=== PATIENT | male | born 1950 | race Caucasian/White ===

== ENCOUNTER → 2020-11-28 02:26 | Outpatient (CLI) | payer MEDICARE, SELFPAY ==
[2020-11-28 18:14] LABS: SARS-CoV-2 RNA PCR Negative
== END ==
PROVIDERS: PCP Internal Medicine; Visit Provider Internal Medicine Gastroenterology
DX: Z01.812 Encounter for preprocedural laboratory examination (principal); Z20.822 Contact with and (suspected) exposure to COVID-19
CPT/HCPCS: C9803; U0003; U0005

== ENCOUNTER 2020-12-01 00:29 | Day surgery (SDC) | payer MEDICARE, SELFPAY ==
[2020-11-21 09:58] VITALS: BMI 34.9
[2020-12-01 08:04] VITALS: BP 143/71; PULSE 74; RESP 20; TEMP 36.3; O2SAT 100; BMI 33.1
[2020-12-01] MEDS: LACTATED RINGERS 1,000 ML 150 ML IV CONT (08:20)
[2020-12-01 08:25] LABS: Glucose Point of Care 134 mg/dl (65-105)
--- NOTE | 2020-12-01 08:34 | WPDANESEPPF ---
Anes - Initial Pre Proc Eval Procedure: Operation Date: 12/01/20 09:30 Proposed Procedures p Screening Colonoscopy - Shailesh Domingo MD Date/Time: 12/01/20 08:34 Surgeon: Shailesh Domingo MD Pre Op Diagnosis: hx of colon polyps Patient Data Age: 70 Gender: M Height: 5 ft 11 in Weight: 107.8 kg Last Vital Signs Temp 97.4 F L 12/01/20 08:04 Pulse 74 12/01/20 08:04 Resp 20 12/01/20 08:04 BP 143/71 H 12/01/20 08:04 Pulse Ox 100 12/01/20 08:04 Allergies Allergy/AdvReac Type Severity Reaction Status Date / Time bee venom protein (honey bee) Allergy Severe Anaphylaxis Verified 12/01/20 08:03 Home Medications Medication Instructions Recorded Confirmed Type albuterol sulfate 90 mcg/actuation 1 puff INHALATION Q4H PRN 04/29/19 11/21/20 History aerosol inhaler aspirin 325 mg tablet 325 mg PO DAILY 04/29/19 11/21/20 History dorzolamide 22.3 mg-timolol 6.8 1 drop EACH EYE BID 04/29/19 11/21/20 History mg/mL eye drops epinephrine 0.3 mg/0.3 mL 0.3 mg IM ONCE 04/29/19 11/21/20 History injection, auto-injector multivitamin 1 tablet PO DAILY 04/29/19 11/21/20 History blood sugar diagnostic #50 each 11/15/19 10/11/20 Rx amlodipine 5 mg tablet 5 mg PO DAILY #90 tablet 09/11/20 11/21/20 Rx atorvastatin 40 mg tablet See Rx Instructions .ROUTE 09/11/20 11/21/20 Rx .COMPLEX #90 tablet glipizide 5 mg tablet 5 mg PO QAM #90 tablet 09/11/20 11/21/20 Rx hydrochlorothiazide 25 mg tablet 25 mg PO DAILY #90 tablet 09/11/20 11/21/20 Rx lisinopril 20 mg tablet 20 mg PO DAILY #90 tablet 09/11/20 11/21/20 Rx brimonidine 0.1 % eye drops 1 drp EACH EYE BID 10/11/20 11/21/20 History calcium carbonate 168 mg calcium 168 mg PO DAILY tablet 10/11/20 11/21/20 History (420 mg) chewable tablet fluticasone fur. 100 mcg-umeclid 1 inh INHALATION DAILY #180 each 10/11/20 11/21/20 Rx 62.5 mcg-vilant 25 mcg inhalat.powder folic acid 0.8 mg PO DAILY 11/21/20 11/21/20 History metformin 1,000 mg PO BID 11/21/20 11/21/20 History Laboratory Tests 12/01/20 08:22 POC Capillary Glucose 134 mg/dl H mg/dl (65-105) Patient hx anesthesia problems: none Family hx anesthesia problems: none [facility] Past Medical History Medical History (Updated 12/01/20 @ 08:32 by Ralph Sanchez MD) Asthma Essential (primary) hypertension Mixed hyperlipidemia Pulmonary emphysema Family History Family History (Updated 11/12/18 @ 13:41 by DOCTOR UNKNOWN) Father Diabetes mellitus Family history of diabetes mellitus in first degree relative Mother Diabetes mellitus Family history of malignant neoplasm of breast in first degree relative Family history of diabetes mellitus in first degree relative Other Family history of glaucoma Family history of malignant neoplasm Hypertension Social History Social History Smoking packs per day: 1 Smoking cigarettes per day: 20.0 Years smoked: 28 Smoking pack-years: 28.00 Smoking status: Former smoker Second hand tobacco smoke exposure: No Smoking end date: 06/30/91 Alcohol intake: current Drinks per week: 7 Alcohol use details: one glass of red wine every night Living arrangements: with family Spiritual care concerns: No Anes - Eval Final PreProcedure Day of Procedure 12/01/20 08:34 Patient weight: obese Heart: regular rate and rhythm Lungs: clear to auscultation Airway: Mallampati scale class III Neurological: alert and oriented Last oral intake: >/= 8 hours ASA classification: III Emergent: no Anesthetic plan: proceed Anesthesia type and monitoring: general GIVS and standard monitoring Informed Consent: The patient's anesthetic plan and its attendant risks and benefits were discussed with the patient/family/POA. Questions were solicited and answers provided to the satisfaction of the patient/family/POA.
--- NOTE | 2020-12-01 08:56 | PM.HPGS ---
History of Present Illness History of Present Illness Consent: Risks, benefits, and alternatives have been discussed and questions answered. Patient agrees to proceed with procedure. Chief complaint: hx of colon polyps Narrative: Servando Pérez is a 70 year old male referred for colon cancer screening. He has a history of having had multiple polyps removed 3 years ago Review of Systems Review of Systems: All systems reviewed & are unremarkable except as noted in HPI and below PMFSH Past Medical History Medical History Asthma Essential (primary) hypertension Mixed hyperlipidemia Pulmonary emphysema Family History Family History Father Diabetes mellitus Family history of diabetes mellitus in first degree relative Mother Diabetes mellitus Family history of malignant neoplasm of breast in first degree relative Family history of diabetes mellitus in first degree relative Other Family history of glaucoma Family history of malignant neoplasm Hypertension Social History Social History Smoking packs per day: 1 Smoking cigarettes per day: 20.0 Years smoked: 28 Smoking pack-years: 28.00 Smoking status: Former smoker Second hand tobacco smoke exposure: No Smoking end date: 06/30/91 Alcohol intake: current Drinks per week: 7 Alcohol use details: one glass of red wine every night Living arrangements: with family Spiritual care concerns: No Meds Home Medications and Allergies Home Medications Medication Instructions Recorded Confirmed Type albuterol sulfate 90 mcg/actuation 1 puff INHALATION Q4H PRN 04/29/19 11/21/20 History aerosol inhaler aspirin 325 mg tablet 325 mg PO DAILY 04/29/19 11/21/20 History dorzolamide 22.3 mg-timolol 6.8 1 drop EACH EYE BID 04/29/19 11/21/20 History mg/mL eye drops epinephrine 0.3 mg/0.3 mL 0.3 mg IM ONCE 04/29/19 11/21/20 History injection, auto-injector multivitamin 1 tablet PO DAILY 04/29/19 11/21/20 History blood sugar diagnostic #50 each 11/15/19 10/11/20 Rx amlodipine 5 mg tablet 5 mg PO DAILY #90 tablet 09/11/20 11/21/20 Rx atorvastatin 40 mg tablet See Rx Instructions .ROUTE 09/11/20 11/21/20 Rx .COMPLEX #90 tablet glipizide 5 mg tablet 5 mg PO QAM #90 tablet 09/11/20 11/21/20 Rx hydrochlorothiazide 25 mg tablet 25 mg PO DAILY #90 tablet 09/11/20 11/21/20 Rx lisinopril 20 mg tablet 20 mg PO DAILY #90 tablet 09/11/20 11/21/20 Rx brimonidine 0.1 % eye drops 1 drp EACH EYE BID 10/11/20 11/21/20 History calcium carbonate 168 mg calcium 168 mg PO DAILY tablet 10/11/20 11/21/20 History (420 mg) chewable tablet fluticasone fur. 100 mcg-umeclid 1 inh INHALATION DAILY #180 each 10/11/20 11/21/20 Rx 62.5 mcg-vilant 25 mcg inhalat.powder folic acid 0.8 mg PO DAILY 11/21/20 11/21/20 History metformin 1,000 mg PO BID 11/21/20 11/21/20 History Allergies Allergy/AdvReac Type Severity Reaction Status Date / Time bee venom protein (honey bee) Allergy Severe Anaphylaxis Verified 12/01/20 08:03 Vital Signs Vital Signs - 24 hr 12/01/20 08:04 Temperature 36.3 C L Pulse Rate 74 Respiratory Rate 20 Blood Pressure 143/71 H Pulse Oximetry 100 Exam Const: General: alert Orientation/consciousness: patient oriented x3 Resp: Auscultation: clear to auscultation bilaterally Cardio: Rhythm: regular rhythm GI: GI Palp: Yes Soft to palpation and No Tenderness to palpation present (GI) Neuro: General: patient oriented x3 Assessment and Plan Assessment and plan (1) Colon cancer screening: Code(s): Z12.11 - Encounter for screening for malignant neoplasm of colon Status: Acute Assessment and Plan: Colonoscopy with possible biopsy or polypectomy or cautery or injection of substances.
[2020-12-01 09:16] VITALS: BP 107/65; PULSE 65; RESP 23; O2SAT 99
[2020-12-01 09:26] VITALS: BP 112/68; PULSE 60; RESP 20; O2SAT 99
[2020-12-01 09:36] VITALS: BP 114/65; PULSE 63; RESP 21; O2SAT 100
== END 2020-12-01 09:55 | disposition home or self-care (01) ==
PROVIDERS: PCP Internal Medicine; Visit Provider Internal Medicine Gastroenterology
PROC: 0DJD8ZZ Inspection of Lower Intestinal Tract, Via Natural or Artificial Opening Endoscopic (ICD-10-PCS; CPT 45378; principal; 2020-12-01 09:30)
DX: Z12.11 Encounter for screening for malignant neoplasm of colon (principal); D12.0 Benign neoplasm of cecum; K62.1 Rectal polyp; J45.909 Unspecified asthma, uncomplicated; I10 Essential (primary) hypertension; E78.2 Mixed hyperlipidemia; J43.9 Emphysema, unspecified; Z87.891 Personal history of nicotine dependence; E66.9 Obesity, unspecified; Z68.33 Body mass index [BMI] 33.0-33.9, adult; Z79.51 Long term (current) use of inhaled steroids; Z79.82 Long term (current) use of aspirin; Z79.84 Long term (current) use of oral hypoglycemic drugs
CPT/HCPCS: 45380; 45385; 45381; 82948; 88305; C9803; J7120; U0003; U0005

== ENCOUNTER → 2020-12-08 10:21 | Outpatient (CLI) | payer MEDICARE, SELFPAY ==
--- NOTE | ~2020-12-08 | XR_ITS ---
XR chest 2V 12/08/2020 10:38 Indication: Shortness of breath Procedure: 2 view chest Comparison: No prior studies for comparison. Findings: Heart size normal. No focal air space disease, pulmonary edema, pleural effusion or suspect ed pneumothorax. No acute osseous abnormality. Impression: 1: No acute cardiopulmonary disease. Reviewed, dictated and finalized at location B. Impression: 1: No acute cardiopulmonary disease.
== END ==
PROVIDERS: Visit Provider Nurse Practitioner
DX: R06.02 Shortness of breath (principal)
CPT/HCPCS: 71046

== ENCOUNTER 2020-12-09 16:42 | Inpatient (IN) | payer MEDICARE, SELFPAY ==
--- NOTE | ~2020-12-09 | CT_ITS ---
EXAMINATION: CT chest abdomen pelvis wo con DATE: 12/09/2020 19:55 INDICATION: Nausea, vomiting and acute renal insufficiency TECHNIQUE: Computed tomography (CT) of the chest, abdomen, and pelvis was performed without intraveno us contrast. Automated exposure control and iterative reconstruction technique were employed. The dos e-length product was 1441.37 mGy-cm. COMPARISON: Chest CT dated 05/18/2018 FINDINGS: CHEST CT: A few small calcified nodules in the right and left lower lobes consistent with old granulomatous dis ease. There are also a few calcified and noncalcified bilateral pleural plaques suggesting prior asbe stos exposure. No suspicious pulmonary nodules, pneumonia, pulmonary edema or pleural effusion. Heart size is normal. Atherosclerotic coronary artery calcifications. No pericardial effusion. Thoracic ao rta is normal in caliber. No pathologically enlarged thoracic lymphadenopathy. Mild to moderate thora cic spondylosis. ABDOMEN/PELVIS CT: Liver, gallbladder, spleen, pancreas and bilateral adrenal glands are normal. Symmetric mild to moder ate bilateral perinephric stranding. 9 mm exophytic cyst at the upper pole of the right kidney. Kidne ys are otherwise unremarkable with no urolithiasis or hydronephrosis. Bladder is normal. Small bowel and appendix are normal. There are few scattered colonic diverticula without adjacent inflammatory ch giancarlo to suggest diverticulitis. There is a small intraluminal metallic clip near the tip of the cecum which could be related to reported colonoscopy one week prior. Correlate with surgical history. No p neumatosis or free intraperitoneal gas or fluid. Moderate to severe lumbar spondylosis. IMPRESSION: 1. Small intraluminal metallic clip at the tip of the cecum which could be related to reported recent colonoscopy. Correlate with procedure note. No acute intra-abdominal/pelvic process. 2. A few bilateral calcified and noncalcified pleural plaques suggestive of prior asbestos exposure. No acute cardiopulmonary disease. Reviewed, dictated and finalized at location A. IMPRESSION: 1. Small intraluminal metallic clip at the tip of the cecum which could be rela nasir to reported recent colonoscopy. Correlate with procedure note. No acute int ra-abdominal/pelvic process. 2. A few bilateral calcified and noncalcified pleural plaques suggestive of vaibhav or asbestos exposure. No acute cardiopulmonary disease.
--- NOTE | ~2020-12-09 | US_ITS ---
EXAMINATION: US renal BI DATE: 12/10/2020 13:27 INDICATION: Elevated creatinine TECHNIQUE: Multiple ultrasound grayscale images of the kidneys were obtained. COMPARISON: None. FINDINGS: The right kidney measures 13.3 x 6.3 x 6.3 cm. The left kidney measures 14.0 x 6.5 x 5.8 cm. The kidn eys demonstrate normal echogenicity. There is no hydronephrosis in either kidney. No stones identifi ed. The bladder is normal. IMPRESSION: 1. Normal kidneys without hydronephrosis. Reviewed, dictated and finalized at location A.
[2020-12-09 16:44] VITALS: BP 192/70; PULSE 76; RESP 18; TEMP 36.2; O2SAT 100
--- NOTE | 2020-12-09 16:44 | ECG_ITS ---
Measurements Intervals Raymond Rate: 69 P: 49 ND: 164 QRS: -3 QRSD: 107 T: 84 QT: 388 QTc: 417 Interpretive Statements SINUS RHYTHM HIGH LATERAL INFARCT, AGE INDETERMINATE ABNORMAL ECG Electronically Signed On 12-09-2020 20:03:56 CDT by Kain Hudson D.O.
[2020-12-09 16:58] LABS: Basophils Absolute Auto 0.1 K/mm3 (0.0-0.1); Basophils Percent Auto 0.4 % (0.2-1.2); Eosinophils Absolute Auto 0.3 K/mm3 (0-0.3); Eosinophils Percent Auto 2.5 % (0-4.4); Hematocrit 33.6 % (42.0-52.0); Hemoglobin 11.2 g/dL (14.0-18.0); Immature Granulocyte Absolute 0.06 K/mm3 (0.00-0.031); Immature Granulocyte Percent A 0.5 % (0-0.5); Lymphocytes Absolute Auto 1.65 K/mm3 (0.9-3.2); Lymphocytes Percent Auto 14.4 % (18.3-44.2); Mean Corpuscular HGB Conc 33.3 g/dl (32-36); Mean Corpuscular Volume 99.1 fl (80-100); Mean Platelet Volume 9.3 fl (7.4-10.4); Monocytes Absolute Auto 1.7 K/mm3 (0.1-0.6); Monocytes Percent Auto 14.4 % (2.6-8.5); Neutrophils Absolute Auto 7.8 K/mm3 (1.3-6.7); Neutrophils Percent Auto 67.8 % (45.5-73.1); Platelet Count Result 393 k/mm3 (150-375); Red Blood Count 3.39 M/mm3 (4.6-6.20); Red Cell Distribution Width 11.7 % (11.5-14.5); White Blood Count 11.5 K/mm3 (4.5-10.0)
[2020-12-09 17:08] LABS: Anion Gap 17 mmol/L (8-16); Blood Urea Nitrogen 84 mg/dL (9-20); Calcium 8.8 mg/dL (8.4-10.2); Carbon Dioxide 18 mmol/L (22-30); Chloride 100 mmol/L (98-107); Estimated CRCL calculation 7 ml/min; Estimated Glomerular Filt Rate 4; Glucose 94 mg/dL (75-110); Potassium 5.2 mmol/L (3.4-5.0); Sodium 135 mmol/L (137-145)
--- NOTE | 2020-12-09 19:10 | ED.GENADULT ---
HPI - General Adult General Chief complaint: Recheck/Abnormal Lab/Rx Stated complaint: dehydrated Time Seen by Provider: 12/09/20 17:52 Source: patient Mode of arrival: ambulatory Limitations: no limitations History of Present Illness HPI narrative: Pt presents to ER for evaluation of abnormal labs. He indicates he was seen by Ender Arenas APN at his primary care physician's office yesterday. He had labs drawn at that time and indicates that Dr Garcia called him today and instructed him to come to the ER for a creatinine of above 11. It sounds like there was some type of confusion where lab personnel thought his PCP was Dr Garcia. He scheduled an appointment with his primary care provider for problems with an upset stomach , fatigue and erratic blood sugars following his recent colonoscopy. He is compliant with his metformin and glipizide but has not been taking these as scheduled the last few days due to episodes of hypoglycemia as low as 48 last Friday. He has experienced dry heaves and one episode of vomiting with decreased appetite. He denies abdominal pain per se but states that the muscles in his stomach are sore . He states that the posterior aspect of his calves were sore yesterday making it challenging for him to walk. Today, the pain is significantly improved. He denies any chest pain, fever and chills. He has experienced some shortness of breath but states that this was only slightly worse than his baseline. He has a hx of emphysema but no longer smokes. He had some leg swelling lately but his states this is significantly improved. No personal hx of VTE. He states that his mother may have had a DVT but he is not certain. He denies any recent strenuous activity. On my initial evaluation his creatinine is resulted at 11.7. He has some chronic urinary frequency and nocturia but states his current symptoms are not worse than baseline. He may have some pressure at the urethral orifice but denies any other new urinary symptoms. Related Data Home Medications Medication Instructions Recorded Confirmed albuterol sulfate 90 mcg/actuation 1 puff INHALATION Q4H PRN 04/29/19 12/08/20 aerosol inhaler aspirin 325 mg tablet 325 mg PO DAILY 04/29/19 12/08/20 dorzolamide 22.3 mg-timolol 6.8 1 drop EACH EYE BID 04/29/19 12/08/20 mg/mL eye drops epinephrine 0.3 mg/0.3 mL 0.3 mg IM ONCE 04/29/19 12/08/20 injection, auto-injector multivitamin 1 tablet PO DAILY 04/29/19 12/08/20 brimonidine 0.1 % eye drops 1 drp EACH EYE BID 10/11/20 12/08/20 calcium carbonate 168 mg calcium 168 mg PO DAILY tablet 10/11/20 12/08/20 (420 mg) chewable tablet folic acid 0.8 mg PO DAILY 11/21/20 12/08/20 Allergies Allergy/AdvReac Type Severity Reaction Status Date / Time bee venom protein (honey bee) Allergy Severe Anaphylaxis Verified 12/09/20 16:43 Review of Systems Review of Systems: Narrative: CONSTITUTIONAL: Reports fatigue. Denies fever, chills, or sweats. EYES: Denies visual changes, redness, or discharge. ENT: Denies rhinorrhea, congestion, sore throat, or otalgia. CARDIOVASCULAR: Denies chest pain, palpitations, or edema. RESPIRATORY: Reports chronic shortness of breath, unchanged. Denies cough GASTROINTESTINAL: Reports nausea. Denies abdominal pain, vomiting, or diarrhea. GENITOURINARY: Reports pressure in urethra. Denies other urinary symptoms. SKIN: Denies rash or itching. MUSCULOSKELETAL: Denies back pain, joint pain, or myalgia. NEUROLOGIC: Reports dizziness. Denies headache, numbness PSYCHIATRIC: Denies anxiety or depression. [facility] Past Medical History Medical History Asthma Diabetes Essential (primary) hypertension Mixed hyperlipidemia Pulmonary emphysema Family History Family History Father Diabetes mellitus Family history of diabetes mellitus in first degree relative Mother Diab
[2020-12-09 20:01] VITALS: BP 150/76; PULSE 73; RESP 18; O2SAT 100
[2020-12-09] MEDS: SODIUM BICARBONATE 8.4% 150 MEQ in DEXTROSE 5% 1,000 ML 950 ML 100 MEQ IV CONT (20:17)
[2020-12-09 20:43] LABS: Add Urine Microscopic? YES; Appearance Urine Clear (Clear); Bilirubin Urine Negative (Negative); Blood Urine Negative (Negative); Color Urine Yellow (Yellow); Glucose Urine UA Negative (Negative); Ketones Urine Negative (Negative); Leukocyte Esterase Ur Negative LEU/UL (Negative); Nitrate Urine Negative (Negative); Protein Urine 1+ mg/dL (Negative); RBC Urine 0-2 /hpf (0-2); Specific Grav Ur 1.012 (1.001-1.035); Urobilinogen Urine Negative mg/dL (<2.0); WBC Urine 0-3 /hpf
[2020-12-09 20:44] LABS: Alanine Aminotransferase 22 U/L (4-50); Albumin Level 4.5 g/dL (3.5-5.1); Alkaline Phosphatase 58 U/L (38-126); Aspartate Amino Transferase 27 U/L (17-59); Bilirubin,Total 0.2 mg/dL (0.2-1.3); Creatine Kinase 63 U/L (55-170); Lipase 553 U/L (23-300); Phosphorus 8.4 mg/dL (2.5-4.5)
[2020-12-09 20:56] LABS: Lactic Acid Reflex < 0.5 mmol/L (0.7-2.1)
[2020-12-09 20:56] LABS: Troponin I < 0.012 ng/mL (0.000-0.034)
[2020-12-09 23:10] VITALS: BP 146/75; PULSE 82; RESP 18; O2SAT 99
[2020-12-09 23:40] VITALS: BP 134/70; PULSE 64; PULSE 72; RESP 16; TEMP 36.4; O2SAT 100
--- NOTE | 2020-12-09 23:44 | ADMGEN ---
This patient, Servando Pérez, was admitted to [facility] Surg Room 332-01. Patient/family oriented to hospital policies and general routines including ID bracelet, bed and alarms, visiting hours, pain management, procedures, bathroom and other care routines, personal items, smoking policy, room service/diet, and visiting hours. Information on how to activate the Rapid Response Team has been discussed. Patient/Family are encouraged to report perceived risks to care and to ask questions if they do not understand what they are told or what they should do.
[2020-12-10] VITALS (9 sets, daily range): BP systolic 112–125; BP diastolic 47–58; PULSE 56–70; RESP 16–20; TEMP 36.4–36.8; O2SAT 96–100; BMI 33.7
[2020-12-10 00:54] LABS: Troponin I < 0.012 ng/mL (0.000-0.034)
--- NOTE | 2020-12-10 02:03 | PM.IMHP ---
H&P: HPI History of Present Illness Date/Time: 12/10/20 02:03 Chief Complaint: ABNORMAL LAB Narrative: This is a 70-year-old male with past medical history significant for colon polyp, hypertension, type 2 diabetes mellitus, glaucoma. Patient presented to the emergency room after he was instructed to do so after some of his lab work turned up to be abnormal with an elevated creatinine. A repeat creatinine in the emergency room was 11. Patient states that he went to see his primary care physician after he has his colonoscopy has not been feeling well has had a stomach upset generalized body aches and pain yesterday he had bilateral calves pain. No fevers no rigors no chills no syncope or near syncope no chest pain no PND no orthopnea no fatigue has had cough with production of greenish phlegm which he states is his usual. He was also found to have elevated potassium and phosphorus patient states that he has been having some workup done in the outpatient setting as well. He denies any issues with voiding. States that his colonoscopy was routine follow-up status due to polyps found in the past his next 1 will be in 5 years. Review of Systems Review of Systems: Narrative: Abnormal lab Constitutional: Constitutional: Denies chills, Denies fatigue, Denies fever(s), Denies malaise and Denies weakness Eyes: Eyes: Denies change in vision ENT: Denies nasal congestion, Denies nasal discharge and Denies nasal obstruction Cardiovascular: Cardiovascular: Denies chest pain, Denies irregular heart rhythm, Denies claudication, Denies leg edema, Denies radiating jaw, neck or arm pain, Denies dyspnea and Denies dyspnea on exertion Respiratory: Respiratory: Denies change in phlegm color and Reports cough Comments: Greenish colored sputum Gastrointestinal: Gastrointestinal: Denies melena, Denies change in bowel habits, Denies heartburn, Reports nausea and Reports vomiting Genitourinary: Genitourinary: Denies hematuria, Denies oliguria, Denies dysuria, Denies flank pain and Denies urinary hesitancy Musculoskeletal: Musculoskeletal: Reports muscle cramps Comments: Bilateral calves Integumentary/Breasts: Skin/Breast: Denies rash Neurologic: Denies dizziness, Denies focal weakness and Denies Sensory deficit (Neuro) Psychiatric: Psychiatric: Reports no additional psychiatric complaints Endocrine: Endocrine: Reports no additional endocrine complaints Hematologic/Lymphatic: Hematologic/Lymphatic: Reports no additional hematologic/lymphatic complaints Allergic/Immunologic: Allergic/Immunologic: Reports no additional allergic/immunologic complaints [facility] Past Medical History Medical History Asthma Diabetes Essential (primary) hypertension Mixed hyperlipidemia Pulmonary emphysema Family History Family History Father Diabetes mellitus Family history of diabetes mellitus in first degree relative Mother Diabetes mellitus Family history of malignant neoplasm of breast in first degree relative Family history of diabetes mellitus in first degree relative Other Family history of glaucoma Family history of malignant neoplasm Hypertension Social History Social History Smoking packs per day: 1 Smoking cigarettes per day: 20.0 Years smoked: 28 Smoking pack-years: 28.00 Smoking status: Former smoker Second hand tobacco smoke exposure: No Smoking end date: 06/30/91 Alcohol intake: current Drinks per week: 7 Gender identity (if verbalized by the patient): Male Spiritual care concerns: No Meds Home Medications and Allergies Home Medications Medication Instructions Recorded Confirmed Type albuterol sulfate 90 mcg/actuation 1 puff INHALATION Q4H PRN 04/29/19 12/08/20 History aerosol inhaler aspirin 325 mg tablet 325 mg PO DAILY
[2020-12-10 02:12] LABS: Calcium 8.7 mg/dL (8.4-10.2)
[2020-12-10] MEDS: CALCIUM GLUC 1,000 MG/NS 50 ML 1,000 MG/50 ML BAG 100 MG IVPB (03:55)
[2020-12-10] MEDS: SODIUM POLYSTYRENE SULFONONATE 15 GM/60 ML BTL 30 GM PO (04:11)
[2020-12-10 06:58] LABS: Basophils Percent Auto 0.3 % (0.2-1.2); Eosinophils Absolute Auto 0.2 K/mm3 (0-0.3); Eosinophils Percent Auto 2.3 % (0-4.4); Hematocrit 31.6 % (42.0-52.0); Hemoglobin 10.7 g/dL (14.0-18.0); Immature Granulocyte Absolute 0.04 K/mm3 (0.00-0.031); Immature Granulocyte Percent A 0.4 % (0-0.5); Lymphocytes Absolute Auto 1.56 K/mm3 (0.9-3.2); Lymphocytes Percent Auto 17.4 % (18.3-44.2); Mean Corpuscular HGB Conc 33.9 g/dl (32-36); Mean Corpuscular Hemoglobin 33.5 pg (26-34); Mean Corpuscular Volume 99.1 fl (80-100); Mean Platelet Volume 9.2 fl (7.4-10.4); Monocytes Absolute Auto 1.6 K/mm3 (0.1-0.6); Neutrophils Absolute Auto 5.5 K/mm3 (1.3-6.7); Neutrophils Percent Auto 61.6 % (45.5-73.1); Platelet Count Result 359 k/mm3 (150-375); Red Blood Count 3.19 M/mm3 (4.6-6.20); Red Cell Distribution Width 11.4 % (11.5-14.5); White Blood Count 8.9 K/mm3 (4.5-10.0)
[2020-12-10] MEDS: SODIUM BICARBONATE 8.4% 150 MEQ in DEXTROSE 5% 1,000 ML 950 ML 100 MEQ IV CONT ×2 (07:04→17:00)
[2020-12-10 07:09] LABS: Anion Gap 16 mmol/L (8-16); Blood Urea Nitrogen 84 mg/dL (9-20); Calcium 8.5 mg/dL (8.4-10.2); Carbon Dioxide 20 mmol/L (22-30); Chloride 100 mmol/L (98-107); Estimated CRCL calculation 7 ml/min; Estimated Glomerular Filt Rate 5; Glucose 147 mg/dL (75-110); Potassium 4.5 mmol/L (3.4-5.0); Sodium 136 mmol/L (137-145)
[2020-12-10 08:31] LABS: Glucose Point of Care 154 mg/dl (65-105)
[2020-12-10] MEDS: ASPIRIN 325 MG TABLET PO (09:26)
[2020-12-10] MEDS: DORZOLAMIDE/TIMOLOL OPHTH SOL 10 ML BOTTLE 1 DROP EACH EYE ×2 (09:26→22:05)
[2020-12-10] MEDS: BRIMONIDINE TARTRATE 0.1% 5 ML OPHTH DROPS 1 DROP EACH EYE ×2 (09:26→17:02)
[2020-12-10] MEDS: amLODIPine BESYLATE 5 MG TABLET PO (09:27)
--- NOTE | 2020-12-10 12:00 | PM.CNNEP ---
Assessment and Plan Assessment and plan (1) VALENTIN (acute kidney injury): Code(s): N17.9 - Acute kidney failure, unspecified Status: Acute Assessment and Plan: the patient has acute kidney injury. In 2019 he had a normal creatinine. In October and November of this year the patient had a creatinine in the high 1s. It is not sure what evaluation he had for this but the creatinine was not high long enough to call this chronic kidney disease. Now with the patient's creatinine is very high. There are multiple issues that might be related to this. He was not eating or drinking and he was taking his diuretics so could be dehydrated. He also took some ibuprofen but it is unlikely that what he took did this much. Also most of renal issues were present by the time he took the ibuprofen. He did have a colonoscopy with a prep and might have gotten dehydration during the prep. Patient patient could have obstruction as well since he has a prostate. So will check on this. Rhabdomyolysis is always a possibility as well but his CK was normal. Other issues such as glomerulonephritis, interstitial nephritis are possible as well. His urine sediment is somewhat bland and so these last 2 issues are unlikely. Will check a renal ultrasound and get urine electrolytes and eosinophils. Will also check serology and immunofixation, especially since his calcium was high right before this. (2) Hyperkalemia: Code(s): E87.5 - Hyperkalemia Status: Acute Assessment and Plan: This is better now. (3) Diabetes: Code(s): E11.9 - Type 2 diabetes mellitus without complications Status: Acute Assessment and Plan: He is on Accu-Cheks and sliding-scale insulin. He was on metformin but stopped this a week ago thank Goodness and his lactate level is okay (4) Nausea & vomiting: Qualifiers: Vomiting type: unspecified Vomiting Intractability: non-intractable Qualified Code(s): R11.2 - Nausea with vomiting, unspecified Code(s): R11.2 - Nausea with vomiting, unspecified Status: Acute Assessment and Plan: the patient had belly comfort and issues after his colonoscopy. This seems to be better. History of Present Illness Reason for Consult Consult date: 12/10/20 Chief Complaint Chief complaint: VALENTIN History of Present Illness Narrative: Kalli is a very pleasant 70-year-old gentleman who has multiple medical problems including diabetes, hypertension, glaucoma, colon polyps Emphysema , asthma, and hyperlipidemia. the patient says he felt well until he had a colonoscopy about a week ago. He did the prep in that went fine. After the colonoscopy he did not feel very well and really did not get any better. He says that he did not eat very well. He had no belly pain and no bloody stools but had some nausea. He had some aches and pains and so took 2 ibuprofen yesterday but otherwise did not take any nonsteroidal anti-inflammatory agents. He says that his blood sugars were normal to low. He stopped his metformin a week ago and stopped his glipizide about 5 days ago. Since then his blood sugars have been better. Throughout this whole time he was making urine. He had no bloody urine, foamy urine, kidney stones, bladder infections, or painful urination. in the recent past the patient had an elevated creatinine such at his GFR was in the CKD 3B range. He also had high calcium for a couple of months this year. He was on hydrochlorothiazide at the time though. Has no chest pain or shortness of breath. No fevers or chills. He does not smoke. He drinks a glass of wine per day Review of Systems Constitutional: Constitutional: Reports no additional constitutional complaints Eyes: Eyes: Reports no additional eye complaints ENT: Reports system reviewed and no additional complaints, except as documented Cardiovascular: Cardiovascular: Reports no additional cardiovascular compl
--- NOTE | 2020-12-10 12:20 | PM.IMPN ---
Progress Note: A&P Assessment and Plan (1) VALENTIN (acute kidney injury): Code(s): N17.9 - Acute kidney failure, unspecified Status: Acute Assessment and Plan: Unclear etiology at this time -patient was on hydrochlorothiazide, ibuprofen and metformin prior to admission and these have been held -he had a colonoscopy prep last week which could have contributed to dehydration -his creatinine last month was 1.8, today it is 10.8 -electrolytes seems stable, continue telemetry -he has not been on any antibiotics or any new medications. UA negative for infection -differential wide, nephrology has ordered urine electrolytes and eosinophiles as well as serology and additional imaging -PhosLo added, patient on a bicarb drip with CO2 of 20 (2) Hyperkalemia: Code(s): E87.5 - Hyperkalemia Status: Acute Assessment and Plan: Resolved, now 4.5 -monitor daily labs (3) Nausea & vomiting: Qualifiers: Vomiting type: unspecified Vomiting Intractability: non-intractable Qualified Code(s): R11.2 - Nausea with vomiting, unspecified Code(s): R11.2 - Nausea with vomiting, unspecified Status: Acute Assessment and Plan: Improving, will advance diet (4) Type 2 diabetes mellitus without complication, with no history of insulin use: Code(s): E11.9 - Type 2 diabetes mellitus without complications Status: Acute Assessment and Plan: Last glucose 154 -will continue sliding scale insulin -hold home oral medications (5) Colon cancer screening: Code(s): Z12.11 - Encounter for screening for malignant neoplasm of colon Status: Acute Assessment and Plan: status post recent colonoscopy -I spoke with Dr. Domingo about this patient and he states he placed a clip in the cecum but may have not been documented. (6) Anemia: Code(s): D64.9 - Anemia, unspecified Status: Acute Assessment and Plan: Hgb stable at 10.7 -monitor Time Spent With Patient Time with patient: 25 - 35 minutes Subjective Date/time seen: 12/10/20 12:20 Interval history: Pt is a 30-year-old male here for kidney failure. Patient seen today and has no complaints. He states he is urinating a lot and drinking a lot a water. Pt denies nausea, vomiting, dizziness, fevers, chills, constipation, diarrhea, chest pain, sob, back pain or abdominal pain. Patient states he was swollen earlier this week but it has improved. He was taking hydrochlorothiazide and ibuprofen prior to admission. Review of Systems Review of Systems: All systems reviewed & are unremarkable except as noted in HPI and below Exam Narrative: Exam Narrative: General: Well developed well nourished patient in NAD HEENT: normocephalic Neck: supple Neuro: Alert and oriented x4 CV:RRR. Telemetry showing normal sinus rhythm with a rate of 60 Resp:CTA Abd: Soft, non distended. No pain to palpation. Positive bowel sounds Extremities: No swelling, erythema, or pain to palpation. Objective Data Vital Signs Vital Signs: Vital Signs - 24 hr 12/09/20 16:44 12/09/20 20:01 12/09/20 23:10 Temperature 97.2 F L Pulse Rate 76 73 82 Respiratory Rate 18 18 18 Blood Pressure 192/70 H 150/76 H 146/75 H Pulse Oximetry 100 100 99 12/09/20 23:40 12/10/20 04:00 12/10/20 06:00 Temperature 97.6 F 97.6 F Pulse Rate 64 66 65 Respiratory Rate 16 20 Blood Pressure 134/70 125/57 L Pulse Oximetry 100 96 12/10/20 10:46 Temperature Pulse Rate Respiratory Rate Blood Pressure Pulse Oximetry 98 Intake/Output Intake/Output: Intake & Output 12/07/20 12/08/20 12/09/20 12/10/20 23:59 23:59 23:59 23:59 Intake Total 1550 Output Total 850 Balance 700 Meds/Results Medications: Active Medications Generic Name Dose Route Start Last Admin Trade Name Wichoq PRN Reason Stop Dose Admin Acetaminophen 650 mg 12/09/20 21:19 Acetaminophen 325 Mg Tablet P
[2020-12-10 12:26] LABS: Glucose Point of Care 208 mg/dl (65-105)
[2020-12-10] MEDS: INSULIN ASPART (*BKC) 100 UNITS/ML SUB-Q (12:31)
[2020-12-10] MEDS: CALCIUM ACETATE 667 MG TABLET PO ×2 (12:33→17:02)
[2020-12-10] MEDS: FLUTICASONE/UMECLIDIN/VILANTER 100-62.5-25 MCG ELLIPTA 1 PUFF INHALATION (12:34)
[2020-12-10 14:12] LABS: Complement C3 121 mg/dL (88-165)
[2020-12-10 14:16] LABS: Iron 46 ug/dL (49-181)
[2020-12-10 14:27] LABS: Erythrocyte Sedimentation Rate > 140 mm/hr (0-20)
[2020-12-10 14:28] LABS: Percent Iron Saturation 14 % (20-50)
[2020-12-10 15:56] LABS: Creatinine Urine 62.9 mg/dL; Total Protein Urine Random 27 mg/dL; Ur Ttl Prot Creatinine Ratio 0.43 mg/mg (0-0.20)
[2020-12-10 16:02] LABS: Sodium Urine Random 59 meq/L
[2020-12-10 17:27] LABS: Glucose Point of Care 113 mg/dl (65-105)
[2020-12-11] VITALS (8 sets, daily range): BP systolic 119–129; BP diastolic 60–78; PULSE 49–60; RESP 16–20; TEMP 36.4–36.7; O2SAT 99–100
[2020-12-11] MEDS: SODIUM BICARBONATE 8.4% 150 MEQ in DEXTROSE 5% 1,000 ML 950 ML 100 MEQ IV CONT ×2 (03:36→14:12)
[2020-12-11 06:32] LABS: Hematocrit 27.4 % (42.0-52.0); Hemoglobin 9.2 g/dL (14.0-18.0); Mean Corpuscular HGB Conc 33.6 g/dl (32-36); Mean Corpuscular Hemoglobin 33.3 pg (26-34); Mean Corpuscular Volume 99.3 fl (80-100); Mean Platelet Volume 9.5 fl (7.4-10.4); Platelet Count Result 328 k/mm3 (150-375); Red Blood Count 2.76 M/mm3 (4.6-6.20); Red Cell Distribution Width 11.4 % (11.5-14.5); White Blood Count 8.7 K/mm3 (4.5-10.0)
[2020-12-11 06:42] LABS: Albumin Level 3.7 g/dL (3.5-5.1); Anion Gap 12 mmol/L (8-16); Blood Urea Nitrogen 72 mg/dL (9-20); Calcium 7.7 mg/dL (8.4-10.2); Carbon Dioxide 28 mmol/L (22-30); Chloride 93 mmol/L (98-107); Estimated CRCL calculation 9 ml/min; Estimated Glomerular Filt Rate 6; Glucose 145 mg/dL (75-110); Phosphorus 6.7 mg/dL (2.5-4.5); Potassium 3.9 mmol/L (3.4-5.0); Sodium 133 mmol/L (137-145)
[2020-12-11 08:03] LABS: Glucose Point of Care 147 mg/dl (65-105)
[2020-12-11] MEDS: FLUTICASONE/UMECLIDIN/VILANTER 100-62.5-25 MCG ELLIPTA 1 PUFF INHALATION (08:26)
[2020-12-11] MEDS: amLODIPine BESYLATE 5 MG TABLET PO (08:27)
[2020-12-11] MEDS: CALCIUM ACETATE 667 MG TABLET PO ×3 (08:28→16:50)
[2020-12-11] MEDS: DORZOLAMIDE/TIMOLOL OPHTH SOL 10 ML BOTTLE 1 DROP EACH EYE ×2 (08:28→20:23)
[2020-12-11] MEDS: ASPIRIN 325 MG TABLET PO (08:28)
[2020-12-11] MEDS: BRIMONIDINE TARTRATE 0.1% 5 ML OPHTH DROPS 1 DROP EACH EYE ×2 (08:28→16:51)
[2020-12-11 11:39] LABS: Glucose Point of Care 206 mg/dl (65-105)
[2020-12-11] MEDS: INSULIN ASPART (*BKC) 100 UNITS/ML SUB-Q (11:41)
--- NOTE | 2020-12-11 14:19 | PM.PNNEP ---
Progress Note: A&P Assessment and Plan (1) VALENTIN (acute kidney injury): Code(s): N17.9 - Acute kidney failure, unspecified Status: Acute Assessment and Plan: the patient has acute kidney injury. In 2019 he had a normal creatinine. In October and November of this year the patient had a creatinine in the high 1s. It is not sure what evaluation he had for this but the creatinine was not high long enough to call this chronic kidney disease. On top of that his creatinine was very high this admission. This was in the setting of nausea vomiting and diarrhea. Renal ultrasound looks okay. Urinalysis is bland. He does have a little bit of protein. Urine electrolytes are non pre renal. Urine eosinophils are pending. Most likely this is acute kidney injury secondary to dehydration. He may have an element of ATN because it was going on for such a long time. Will continue IV fluids. He had metabolic acidosis. Bicarbonate level is okay now so we will stop the bicarbonate supplementation to his IV fluid. (2) Hyperkalemia: Code(s): E87.5 - Hyperkalemia Status: Acute Assessment and Plan: Resolved (3) Diabetes: Code(s): E11.9 - Type 2 diabetes mellitus without complications Status: Acute Assessment and Plan: He is on Accu-Cheks and sliding-scale insulin. He was on metformin but stopped this a week ago thank Goodness and his lactate level is okay (4) Nausea & vomiting: Qualifiers: Vomiting type: unspecified Vomiting Intractability: non-intractable Qualified Code(s): R11.2 - Nausea with vomiting, unspecified Code(s): R11.2 - Nausea with vomiting, unspecified Status: Acute Assessment and Plan: Improved Subjective Date/time seen: 12/11/20 14:19 Interval history: Patient feels better today. Food is not very good so he is not eating all that much. No chest pain or shortness of breath. No swelling. Review of Systems Cardiovascular: Cardiovascular: Reports no additional cardiovascular complaints Respiratory: Respiratory: Reports no additional respiratory complaints Gastrointestinal: Gastrointestinal: Reports no additional gastrointestinal complaints Genitourinary: Genitourinary: Reports no additional male genitourinary complaints Exam Narrative: Exam Narrative: WDWN in NAD skin no rash head ncat lungs clear cor reg no rub abd BS+ nontender and soft ext no edema. Objective Data Vital Signs Vital Signs: Vital Signs - 24 hr 12/10/20 16:00 12/10/20 20:00 12/10/20 22:00 Temperature 36.8 C Pulse Rate 59 L 60 60 Respiratory Rate 16 Blood Pressure 112/47 L Pulse Oximetry 100 12/11/20 00:00 12/11/20 04:00 12/11/20 06:00 Temperature 36.4 C Pulse Rate 53 L 60 57 L Respiratory Rate 16 Blood Pressure 119/63 Pulse Oximetry 100 12/11/20 08:00 12/11/20 12:00 Temperature Pulse Rate 59 L 49 L Respiratory Rate Blood Pressure Pulse Oximetry Intake/Output Intake/Output: Intake & Output 12/08/20 12/09/20 12/10/20 12/11/20 23:59 23:59 23:59 23:59 Intake Total 5450 2740 Output Total 2600 1100 Balance 2850 1640 Meds/Results Medications: Active Medications Generic Name Dose Route Start Last Admin Trade Name Freq PRN Reason Stop Dose Admin Acetaminophen 650 mg 12/09/20 21:19 Acetaminophen 325 Mg Tablet PO Q4H PRN Mild Pain (1-3) or Fever Albuterol 1 puff 12/10/20 02:22 Albuterol Sulfate (*Sp) Aerosol 1 Puff INHALATION Q4H PRN Shortness Of Breath Amlodipine Besylate 5 mg 12/10/20 09:00 12/11/20 08:27 Amlodipine Besylate 5 Mg Tablet PO 5 mg DAILY CHRISTIANNE Administration Aspirin 325 mg 12/10/20 09:00 12/11/20 08:28 Aspirin 325 Mg Tablet PO 325 mg DAILY CHRISTIANNE Administration Brimonidine Tartrate 1 drop 12/10/20 09:00 12/11/20 08:28 Brimonidine Tartrate 0.1% 5 Ml Ophth Drops EACH EYE 1 drop BID CHRISTIANNE Administration
[2020-12-11] MEDS: SODIUM CHLORIDE 0.9% IV 1,000 ML 100 ML IV CONT (14:29)
--- NOTE | 2020-12-11 14:35 | PM.IMPN ---
Progress Note: A&P Assessment and Plan (1) VALENTIN (acute kidney injury): Code(s): N17.9 - Acute kidney failure, unspecified Status: Acute Assessment and Plan: Unclear etiology at this time, could be due to VALENTIN from dehydration -patient was on hydrochlorothiazide, ibuprofen and metformin prior to admission and these have been held -he had a colonoscopy prep last week which could have contributed to dehydration -his creatinine last month was 1.8, today it is 8.8 -electrolytes seems stable, continue telemetry -he has not been on any antibiotics or any new medications. UA negative for infection -differential wide, nephrology has ordered urine electrolytes and eosinophiles as well as serology and additional imaging -PhosLo added, bicarb drip has been stopped (2) Hyperkalemia: Code(s): E87.5 - Hyperkalemia Status: Acute Assessment and Plan: Resolved, now 3.9 -monitor daily labs (3) Nausea & vomiting: Qualifiers: Vomiting type: unspecified Vomiting Intractability: non-intractable Qualified Code(s): R11.2 - Nausea with vomiting, unspecified Code(s): R11.2 - Nausea with vomiting, unspecified Status: Acute Assessment and Plan: Improving, will advance diet (4) Type 2 diabetes mellitus without complication, with no history of insulin use: Code(s): E11.9 - Type 2 diabetes mellitus without complications Status: Acute Assessment and Plan: Last glucose 206 -will continue sliding scale insulin -hold home oral medications (5) Colon cancer screening: Code(s): Z12.11 - Encounter for screening for malignant neoplasm of colon Status: Acute Assessment and Plan: status post recent colonoscopy -I spoke with Dr. Domingo about this patient and he states he placed a clip in the cecum but may have not been documented. (6) Anemia: Code(s): D64.9 - Anemia, unspecified Status: Acute Assessment and Plan: Hgb stable at 9.2 -likely dilutional changes. Will add ferrritin, B12 and folate levels -monitor Subjective Date/time seen: 12/11/20 14:35 Interval history: Pt is a 30-year-old male here for kidney failure. Patient seen today and has no complaints other than the food. He states he is urinating a lot and drinking a lot a water. Pt denies nausea, vomiting, dizziness, fevers, chills, constipation, diarrhea, chest pain, sob, back pain or abdominal pain. Patient states he was swollen earlier this week but it has improved. He was taking hydrochlorothiazide and ibuprofen prior to admission. Objective Data Vital Signs Vital Signs: Vital Signs - 24 hr 12/10/20 16:00 12/10/20 20:00 12/10/20 22:00 Temperature 98.3 F Pulse Rate 59 L 60 60 Respiratory Rate 16 Blood Pressure 112/47 L Pulse Oximetry 100 12/11/20 00:00 12/11/20 04:00 12/11/20 06:00 Temperature 97.6 F Pulse Rate 53 L 60 57 L Respiratory Rate 16 Blood Pressure 119/63 Pulse Oximetry 100 12/11/20 08:00 12/11/20 12:00 Temperature Pulse Rate 59 L 49 L Respiratory Rate Blood Pressure Pulse Oximetry Intake/Output Intake/Output: Intake & Output 12/08/20 12/09/20 12/10/20 12/11/20 23:59 23:59 23:59 23:59 Intake Total 5450 2740 Output Total 2600 1100 Balance 2850 1640 Meds/Results Medications: Active Medications Generic Name Dose Route Start Last Admin Trade Name Freq PRN Reason Stop Dose Admin Acetaminophen 650 mg 12/09/20 21:19 Acetaminophen 325 Mg Tablet PO Q4H PRN Mild Pain (1-3) or Fever Albuterol 1 puff 12/10/20 02:22 Albuterol Sulfate (*Sp) Aerosol 1 Puff INHALATION Q4H PRN Shortness Of Breath Amlodipine Besylate 5 mg 12/10/20 09:00 12/11/20 08:27 Amlodipine Besylate 5 Mg Tablet PO 5 mg DAILY CHRISTIANNE Administration Aspirin 325 mg 12/10/20 09:00 12/11/20 08:28 Aspirin 325 Mg Tablet PO 325 mg DAILY [facility] Administrati
[2020-12-11 17:04] LABS: Glucose Point of Care 113 mg/dl (65-105)
[2020-12-11 20:39] LABS: Glucose Point of Care 163 mg/dl (65-105)
[2020-12-12] VITALS: PULSE 56
[2020-12-12] MEDS: SODIUM CHLORIDE 0.9% IV 1,000 ML 100 ML IV CONT ×3 (01:21→21:56)
[2020-12-12 04:00] VITALS: PULSE 53
[2020-12-12 05:57] VITALS: BP 135/49; PULSE 60; RESP 18; TEMP 36.7; O2SAT 98
[2020-12-12 06:22] LABS: Hematocrit 26.8 % (42.0-52.0); Hemoglobin 9.1 g/dL (14.0-18.0); Mean Corpuscular Hemoglobin 34.2 pg (26-34); Mean Corpuscular Volume 100.8 fl (80-100); Mean Platelet Volume 9.8 fl (7.4-10.4); Platelet Count Result 307 k/mm3 (150-375); Red Blood Count 2.66 M/mm3 (4.6-6.20); Red Cell Distribution Width 11.3 % (11.5-14.5); White Blood Count 8.9 K/mm3 (4.5-10.0)
[2020-12-12 06:30] LABS: Albumin Level 3.5 g/dL (3.5-5.1); Anion Gap 11 mmol/L (8-16); Blood Urea Nitrogen 58 mg/dL (9-20); Calcium 7.7 mg/dL (8.4-10.2); Carbon Dioxide 26 mmol/L (22-30); Chloride 96 mmol/L (98-107); Estimated CRCL calculation 10 ml/min; Estimated Glomerular Filt Rate 7; Glucose 123 mg/dL (75-110); Phosphorus 5.9 mg/dL (2.5-4.5); Potassium 3.8 mmol/L (3.4-5.0); Sodium 133 mmol/L (137-145)
[2020-12-12 07:34] LABS: Folic Acid > 20.0 ng/mL (2.76->20)
[2020-12-12 07:36] LABS: Glucose Point of Care 144 mg/dl (65-105)
[2020-12-12 08:00] VITALS: PULSE 54
[2020-12-12] MEDS: FLUTICASONE/UMECLIDIN/VILANTER 100-62.5-25 MCG ELLIPTA 1 PUFF INHALATION (08:10)
[2020-12-12] MEDS: ASPIRIN 325 MG TABLET PO (08:11)
[2020-12-12] MEDS: amLODIPine BESYLATE 5 MG TABLET PO (08:11)
[2020-12-12] MEDS: BRIMONIDINE TARTRATE 0.1% 5 ML OPHTH DROPS 1 DROP EACH EYE ×2 (08:12→16:15)
[2020-12-12] MEDS: CALCIUM ACETATE 667 MG TABLET PO ×3 (08:12→17:17)
[2020-12-12] MEDS: DORZOLAMIDE/TIMOLOL OPHTH SOL 10 ML BOTTLE 1 DROP EACH EYE ×2 (08:12→20:22)
--- NOTE | 2020-12-12 10:58 | PM.IMPN ---
Progress Note: A&P Assessment and Plan (1) VALENTIN (acute kidney injury): Code(s): N17.9 - Acute kidney failure, unspecified Status: Acute Assessment and Plan: Etiology unclear at this time. Suspect dehydration from recent colonoscopy prep then ongoing poor oral intake contributed. Patient was on hydrochlorothiazide, ibuprofen and metformin prior to admission and these have been held. Cr last month was 1.8; up to 11.7 on arrival trending down slowly to 7.6 today with continued IV hydration. Appreciate nephrology input. Renal ultrasound unremarkable. Continue to monitor renal function, electrolytes and urine output. (2) Hyperkalemia: Code(s): E87.5 - Hyperkalemia Status: Acute Assessment and Plan: Resolved. Suspect related to renal failure. K stable at 3.8 today. Monitor electrolytes daily. DC telemetry. (3) Nausea & vomiting: Qualifiers: Vomiting type: unspecified Vomiting Intractability: non-intractable Qualified Code(s): R11.2 - Nausea with vomiting, unspecified Code(s): R11.2 - Nausea with vomiting, unspecified Status: Acute Assessment and Plan: Resolved. Still a bit of poor appetite. (4) Type 2 diabetes mellitus without complication, with no history of insulin use: Code(s): E11.9 - Type 2 diabetes mellitus without complications Status: Acute Assessment and Plan: Home metformin and glipizide held. Hgb A1c 6.6% last month. Continue to monitor with accu-cheks and adjust treatment as needed, cover with SSI. Diabetic diet. (5) Colon cancer screening: Code(s): Z12.11 - Encounter for screening for malignant neoplasm of colon Status: Acute Assessment and Plan: Status post recent colonoscopy 12/01/20 demonstrated multiple polyps which were removed - follow up with Dr Domingo. (6) Anemia: Code(s): D64.9 - Anemia, unspecified Status: Acute Assessment and Plan: H&H low but stable. No evidence of acute bleeding. Downward trend may be in part related to dilutional changes. Ferritin, B12, folate within normal limits. Monitor H&H. Subjective Date/time seen: 12/12/20 0945 Interval history: Mr. Pérez is a very pleasant 70yo M admitted for acute renal failure. This may have been related to recent colonoscopy prep. He tells me he had a colonoscopy 12/01 and after that had a lot of nausea and was not eating or drinking much of anything. He tells me he drinks 12 cups of coffee per day and his knew he was sick when he was drinking only 1 cup. Today he is feeling pretty well and denies chest pain, SOB or palpitations. His diet is restricted and I think we can cut back to just a diabetic diet so maybe he will eat more. He denies nausea, vomiting, or abdominal pain. Had a normal soft non-bloody BM this morning. Review of Systems Review of Systems: All systems reviewed & are unremarkable except as noted in HPI and below Exam Narrative: Exam Narrative: General: Male resting comfortably sitting up in bed in no acute distress. HEENT: Normocephalic, EOMI, oral mucosa moist. Cardiovascular: Rate and rhythm are regular. Telemetry review shows some intermittent mild bradycardia in 50s; HR 62 sinus rhythm at time of my encounter. Respiratory: Lungs clear to auscultation bilaterally. Respirations even and non-labored. Tolerating room air. Abdomen: Soft, non-tender, non-distended, bowel sounds present. Extremities: Peripheral pulses intact. No edema or pain to palpation. Neuro: Awake and alert; answering questions appropriately. No focal neurological deficits. Speech is clear. Objective Data Vital Signs Vital Signs: Last Vital Signs Temp 98.1 F 12/12/20 05:57
[2020-12-12 11:46] LABS: Glucose Point of Care 164 mg/dl (65-105)
[2020-12-12 14:00] VITALS: BP 134/67; PULSE 56; RESP 16; TEMP 36.5; O2SAT 98
--- NOTE | 2020-12-12 16:23 | PM.PNNEP ---
Progress Note: A&P Assessment and Plan (1) VALENTIN (acute kidney injury): Code(s): N17.9 - Acute kidney failure, unspecified Status: Acute Assessment and Plan: the patient has acute kidney injury. In 2019 he had a normal creatinine. In October and November of this year the patient had a creatinine in the high 1s. It is not sure what evaluation he had for this but the creatinine was not high long enough to call this chronic kidney disease. On top of that his creatinine was very high this admission. This was in the setting of nausea vomiting and diarrhea. Renal ultrasound looks okay. Urinalysis is bland. He does have a little bit of protein. Urine electrolytes are non pre renal. Urine eosinophils are pending. Most likely this is acute kidney injury secondary to dehydration. He may have an element of ATN because it was going on for such a long time. creatinine has finally had a realonable increment in the right direction. Will continue IV fluids. he is not eating very well. will change to a diabetic diet. (2) Hyperkalemia: Code(s): E87.5 - Hyperkalemia Status: Acute Assessment and Plan: Resolved (3) Diabetes: Code(s): E11.9 - Type 2 diabetes mellitus without complications Status: Acute Assessment and Plan: He is on Accu-Cheks and sliding-scale insulin. He was on metformin but stopped this a week ago thank Goodness and his lactate level is okay (4) Nausea & vomiting: Qualifiers: Vomiting type: unspecified Vomiting Intractability: non-intractable Qualified Code(s): R11.2 - Nausea with vomiting, unspecified Code(s): R11.2 - Nausea with vomiting, unspecified Status: Acute Assessment and Plan: Improved Subjective Date/time seen: 12/12/20 16:23 Interval history: Patient feels better today. Food is not very good so he is not eating all that much. he is on a renal diet. He is eating poorly. No chest pain or shortness of breath. No swelling. Exam Narrative: Exam Narrative: WDWN in NAD skin no rash head ncat lungs clear bilaterally cor reg no rub abd BS+ nontender and soft ext no edema or cyanosis.. Objective Data Vital Signs Vital Signs: Vital Signs - 24 hr 12/11/20 22:00 12/12/20 00:00 12/12/20 04:00 Temperature 36.5 C Pulse Rate 60 56 L 53 L Respiratory Rate 18 Blood Pressure 122/60 Pulse Oximetry 99 12/12/20 05:57 12/12/20 08:00 12/12/20 14:00 Temperature 36.7 C 36.5 C Pulse Rate 60 54 L 56 L Respiratory Rate 18 16 Blood Pressure 135/49 L 134/67 Pulse Oximetry 98 98 Intake/Output Intake/Output: Intake & Output 12/09/20 12/10/20 12/11/20 12/12/20 23:59 23:59 23:59 23:59 Intake Total 5450 4120 4220 Output Total 2600 2600 1200 Balance 2850 1520 3020 Meds/Results Medications: Active Medications Generic Name Dose Route Start Last Admin Trade Name Freq PRN Reason Stop Dose Admin Acetaminophen 650 mg 12/09/20 21:19 Acetaminophen 325 Mg Tablet PO Q4H PRN Mild Pain (1-3) or Fever Albuterol 1 puff 12/10/20 02:22 Albuterol Sulfate (*Sp) Aerosol 1 Puff INHALATION Q4H PRN Shortness Of Breath Amlodipine Besylate 5 mg 12/10/20 09:00 12/12/20 08:11 Amlodipine Besylate 5 Mg Tablet PO 5 mg DAILY CHRISTIANNE Administration Aspirin 325 mg 12/10/20 09:00 12/12/20 08:11 Aspirin 325 Mg Tablet PO 325 mg DAILY CHRISTIANNE Administration Brimonidine Tartrate 1 drop 12/10/20 09:00 12/12/20 16:15 Brimonidine Tartrate 0.1% 5 Ml Ophth Drops EACH EYE 1 drop BID CHRISTIANNE Administration Calcium Acetate 667 mg 12/10/20 13:00 12/12/20 12:11 Calcium Acetate 667 Mg Tablet PO 667 mg TID CHRISTIANNE Administration Dextrose 12.5 gm 12/10/20 09:13 Dextrose 50% 25 Gm/50 Ml Syringe IV PUSH PRN PRN Hypoglycemia Protocol Dorzolamide/Timolol 1 drop 12/10/20 09:00 12/12/20 08:12 Dorzolamide/Timolol Ophth Liseth 10 Ml Bottle
[2020-12-12 16:24] LABS: Eosinophil Urine None Seen % (None Seen)
[2020-12-12 16:46] LABS: Glucose Point of Care 116 mg/dl (65-105)
[2020-12-12 22:00] VITALS: BP 126/61; PULSE 56; RESP 20; TEMP 36.4; O2SAT 97
[2020-12-13 00:25] LABS: Kappa\\Lambda Light Chains 2.66 (0.26-1.65); Lambda Light Chain 44.5 mg/L (5.7-26.3)
[2020-12-13 00:43] LABS: Glucose Point of Care 135 mg/dl (65-105)
[2020-12-13 05:37] VITALS: BP 126/81; PULSE 57; RESP 18; TEMP 36.2; O2SAT 98
[2020-12-13 06:08] LABS: Hematocrit 26.9 % (42.0-52.0); Hemoglobin 8.7 g/dL (14.0-18.0)
[2020-12-13 06:31] LABS: Albumin Level 3.5 g/dL (3.5-5.1); Anion Gap 11 mmol/L (8-16); Blood Urea Nitrogen 50 mg/dL (9-20); Calcium 7.7 mg/dL (8.4-10.2); Carbon Dioxide 22 mmol/L (22-30); Chloride 100 mmol/L (98-107); Estimated CRCL calculation 12 ml/min; Estimated Glomerular Filt Rate 9; Glucose 124 mg/dL (75-110); Magnesium 1.4 mg/dL (1.6-2.3); Phosphorus 4.6 mg/dL (2.5-4.5); Potassium 3.9 mmol/L (3.4-5.0); Sodium 133 mmol/L (137-145)
[2020-12-13 07:43] LABS: Glucose Point of Care 128 mg/dl (65-105)
[2020-12-13] MEDS: FLUTICASONE/UMECLIDIN/VILANTER 100-62.5-25 MCG ELLIPTA 1 PUFF INHALATION (08:10)
[2020-12-13] MEDS: ASPIRIN 325 MG TABLET PO (08:11)
[2020-12-13] MEDS: BRIMONIDINE TARTRATE 0.1% 5 ML OPHTH DROPS 1 DROP EACH EYE ×2 (08:11→17:50)
[2020-12-13] MEDS: amLODIPine BESYLATE 5 MG TABLET PO (08:11)
[2020-12-13] MEDS: DORZOLAMIDE/TIMOLOL OPHTH SOL 10 ML BOTTLE 1 DROP EACH EYE ×2 (08:12→21:46)
[2020-12-13] MEDS: SODIUM CHLORIDE 0.9% IV 1,000 ML 100 ML IV CONT (08:25)
[2020-12-13] MEDS: CALCIUM ACETATE 667 MG TABLET PO ×3 (10:10→17:50)
[2020-12-13] MEDS: MAGNESIUM SULFATE 3GM/D5W100ML 3 GM/100 ML BAG IVPB (11:19)
[2020-12-13] MEDS: FAMOTIDINE 20 MG TABLET PO ×2 (11:19→21:46)
[2020-12-13] MEDS: CALCIUM CARBONATE (TUMS) 500 MG (200 MG ELEMENTAL) PO ×2 (11:26→17:52)
[2020-12-13 11:34] LABS: Glucose Point of Care 152 mg/dl (65-105)
[2020-12-13 13:24] LABS: Magnesium 2.3 mg/dL (1.6-2.3)
[2020-12-13 14:00] VITALS: BP 131/63; PULSE 60; RESP 14; TEMP 36.6; O2SAT 98
[2020-12-13 14:07] LABS: Complement Total CH50 >60 U/mL (31-60)
--- NOTE | 2020-12-13 14:48 | PM.IMPN ---
Progress Note: A&P Assessment and Plan (1) VALENTIN (acute kidney injury): Code(s): N17.9 - Acute kidney failure, unspecified Status: Acute Assessment and Plan: Etiology unclear at this time. Suspect dehydration from recent colonoscopy prep then ongoing poor oral intake contributed. Patient was on hydrochlorothiazide, ibuprofen and metformin prior to admission and these have been held. Cr last month was 1.8; up to 11.7 on arrival trending down to 6.4 today with IV hydration. With better oral intake we can stop IV fluids. Appreciate nephrology input. Discussed with Dr Jade this afternoon. Renal ultrasound unremarkable. Continue to monitor renal function, electrolytes and urine output. (2) Hyperkalemia: Code(s): E87.5 - Hyperkalemia Status: Resolved Assessment and Plan: Resolved. Suspect related to renal failure. K stable today. Monitor electrolytes daily. Low magnesium replaced, recheck this afternoon is normal. (3) Nausea & vomiting: Qualifiers: Vomiting type: unspecified Vomiting Intractability: non-intractable Qualified Code(s): R11.2 - Nausea with vomiting, unspecified Code(s): R11.2 - Nausea with vomiting, unspecified Status: Acute Assessment and Plan: Improved. Eating better today. Continue supportive care with anti-emetics. (4) Type 2 diabetes mellitus without complication, with no history of insulin use: Code(s): E11.9 - Type 2 diabetes mellitus without complications Status: Acute Assessment and Plan: Home metformin and glipizide held. Hgb A1c 6.6% last month. Continue to monitor with accu-cheks and adjust treatment as needed, cover with SSI. Diabetic diet. (5) Colon cancer screening: Code(s): Z12.11 - Encounter for screening for malignant neoplasm of colon Status: Acute Assessment and Plan: Status post recent colonoscopy 12/01/20 demonstrated multiple polyps which were removed - follow up with Dr Domingo. (6) Anemia: Code(s): D64.9 - Anemia, unspecified Status: Acute Assessment and Plan: H&H low but stable. No evidence of acute bleeding. Downward trend may be in part related to dilutional changes. Ferritin, B12, folate within normal limits. Monitor H&H. Subjective Date/time seen: 12/13/20 14:15 Interval history: Mr. Pérez is a very pleasant 70yo M admitted for acute renal failure. He reports feeling okay today and is eating and drinking better. He denies chest pain or shortness of breath. Some mild nausea earlier is improved after anti-emetic. No vomiting. No other complaints at this time. Review of Systems Review of Systems: All systems reviewed & are unremarkable except as noted in HPI and below Exam Narrative: Exam Narrative: General: Male resting comfortably supine in bed in no acute distress. HEENT: Normocephalic, EOMI, oral mucosa moist. Cardiovascular: Rate and rhythm are regular. Respiratory: Lungs clear to auscultation bilaterally. Respirations even and non-labored. Tolerating room air. Abdomen: Soft, non-tender, non-distended, bowel sounds present. Extremities: Peripheral pulses intact. No edema or pain to palpation. Neuro: Awake and alert; answering questions appropriately. No focal neurological deficits. Speech is clear. Objective Data Vital Signs Vital Signs: Vital Signs - 24 hr 12/12/20 22:00 12/13/20 05:37 Temperature 97.5 F L 97.2 F L Pulse Rate 56 L 57 L Respiratory Rate 20 18 Blood Pressure 126/61 126/81 Pulse Oximetry 97 98 Intake/Output Intake/Output: Intake & Output 12/10/20 12/11/20 12/12/20 12/13/20 23:59 23:59 23:59 23:59 Intake Total 5450 4120 6460 1680 Output Total 2600 2600 27
--- NOTE | 2020-12-13 15:50 | PM.PNNEP ---
Progress Note: A&P Assessment and Plan (1) VALENTIN (acute kidney injury): Code(s): N17.9 - Acute kidney failure, unspecified Status: Acute Assessment and Plan: the patient has acute kidney injury. In 2019 he had a normal creatinine. In October and November of this year the patient had a creatinine in the high 1s. his current baseline is unclear. Renal ultrasound looks okay. Urinalysis is bland. He does have a little bit of protein. Urine electrolytes are non pre renal. Urine eosinophils are pending. Most likely this is acute kidney injury secondary to dehydration. Creatinine is slowly improving. Today it is down to around 6. His intake output is 3900 in and 3100 out. I think he is just urinating what ever fluids we give him. He is eating well and drinking fluids so I think we can stop the IV fluids. (2) Hyperkalemia: Code(s): E87.5 - Hyperkalemia Status: Resolved Assessment and Plan: Resolved (3) Diabetes: Code(s): E11.9 - Type 2 diabetes mellitus without complications Status: Acute Assessment and Plan: He is on Accu-Cheks and sliding-scale insulin. (4) Nausea & vomiting: Qualifiers: Vomiting type: unspecified Vomiting Intractability: non-intractable Qualified Code(s): R11.2 - Nausea with vomiting, unspecified Code(s): R11.2 - Nausea with vomiting, unspecified Status: Acute Assessment and Plan: Resolved Subjective Date/time seen: 12/13/20 15:50 Interval history: Patient feels better today. He is eating better with the diabetic diet. Sitting up in a chair. No swelling or shortness of breath Exam Narrative: Exam Narrative: WDWN in NAD skin no rash or subcu nodules head ncat lungs clear bilaterally cor reg no rub or gallop abd BS+ nontender and soft ext no edema or cyanosis.. Objective Data Vital Signs Vital Signs: Vital Signs - 24 hr 12/12/20 22:00 12/13/20 05:37 Temperature 36.4 C L 36.2 C L Pulse Rate 56 L 57 L Respiratory Rate 20 18 Blood Pressure 126/61 126/81 Pulse Oximetry 97 98 Intake/Output Intake/Output: Intake & Output 12/10/20 12/11/20 12/12/20 12/13/20 23:59 23:59 23:59 23:59 Intake Total 5450 4120 6460 1680 Output Total 2600 2600 2700 1600 Balance 2850 1520 3760 80 Meds/Results Medications: Active Medications Generic Name Dose Route Start Last Admin Trade Name Freq PRN Reason Stop Dose Admin Acetaminophen 650 mg 12/09/20 21:19 Acetaminophen 325 Mg Tablet PO Q4H PRN Mild Pain (1-3) or Fever Albuterol 1 puff 12/10/20 02:22 Albuterol Sulfate (*Sp) Aerosol 1 Puff INHALATION Q4H PRN Shortness Of Breath Amlodipine Besylate 5 mg 12/10/20 09:00 12/13/20 08:11 Amlodipine Besylate 5 Mg Tablet PO 5 mg DAILY CHRISTIANNE Administration Aspirin 325 mg 12/10/20 09:00 12/13/20 08:11 Aspirin 325 Mg Tablet PO 325 mg DAILY CHRISTIANNE Administration Brimonidine Tartrate 1 drop 12/10/20 09:00 12/13/20 08:11 Brimonidine Tartrate 0.1% 5 Ml Ophth Drops EACH EYE 1 drop BID CHRISTIANNE Administration Calcium Acetate 667 mg 12/10/20 13:00 12/12/20 17:17 Calcium Acetate 667 Mg Tablet PO 667 mg TID CHRISTIANNE Administration Calcium Carbonate 200 mg 12/13/20 08:27 12/13/20 11:26 Calcium Carbonate (Tums) 500 Mg (200 Mg Elemental) PO 200 mg Q6H PRN Administration Indigestion Dextrose 12.5 gm 12/10/20 09:13 Dextrose 50% 25 Gm/50 Ml Syringe IV PUSH PRN PRN Hypoglycemia Protocol Dorzolamide/Timolol 1 drop 12/10/20 09:00 12/13/20 08:12 Dorzolamide/Timolol Ophth Liseth 10 Ml Bottle EACH EYE 1 drop Q12HR CHRISTIANNE Administration Famotidine 20 mg 12/13/20 09:00 12/13/20 11:19 Famotidine 20 Mg Tablet PO 20 mg Q12HR CHRISTIANNE Administration Fluticasone/Umeclidinium/Vilanterol 1 puff 12/10/20 08:00 12/13/20 08:10 Fluticasone/Umeclidin/Vilanter 100-62.5-25 Mcg Ellipta INHALATION 1
[2020-12-13 17:17] LABS: Glucose Point of Care 102 mg/dl (65-105)
[2020-12-13 20:40] VITALS: PULSE 60; RESP 14; O2SAT 98
[2020-12-13 22:00] VITALS: BP 135/60; PULSE 66; RESP 20; TEMP 36.7; O2SAT 98
[2020-12-13 23:37] LABS: Glucose Point of Care 126 mg/dl (65-105)
[2020-12-14 06:00] VITALS: BP 120/53; PULSE 63; RESP 18; TEMP 36.5; O2SAT 96
[2020-12-14 06:10] LABS: Hematocrit 26.3 % (42.0-52.0); Hemoglobin 8.7 g/dL (14.0-18.0); Mean Corpuscular HGB Conc 33.1 g/dl (32-36); Mean Corpuscular Hemoglobin 33.1 pg (26-34); Mean Platelet Volume 9.4 fl (7.4-10.4); Platelet Count Result 292 k/mm3 (150-375); Red Blood Count 2.63 M/mm3 (4.6-6.20); Red Cell Distribution Width 11.3 % (11.5-14.5); White Blood Count 10.4 K/mm3 (4.5-10.0)
[2020-12-14 06:25] LABS: Albumin Level 3.3 g/dL (3.5-5.1); Anion Gap 9 mmol/L (8-16); Blood Urea Nitrogen 42 mg/dL (9-20); Calcium 7.8 mg/dL (8.4-10.2); Carbon Dioxide 22 mmol/L (22-30); Chloride 101 mmol/L (98-107); Estimated CRCL calculation 14 ml/min; Estimated Glomerular Filt Rate 10; Glucose 120 mg/dL (75-110); Magnesium 1.8 mg/dL (1.6-2.3); Potassium 4.1 mmol/L (3.4-5.0); Sodium 132 mmol/L (137-145)
[2020-12-14 07:28] LABS: Glucose Point of Care 117 mg/dl (65-105)
[2020-12-14] MEDS: FLUTICASONE/UMECLIDIN/VILANTER 100-62.5-25 MCG ELLIPTA 1 PUFF INHALATION (08:44)
[2020-12-14] MEDS: CALCIUM ACETATE 667 MG TABLET PO ×3 (08:45→17:08)
[2020-12-14] MEDS: ASPIRIN 325 MG TABLET PO (08:45)
[2020-12-14] MEDS: amLODIPine BESYLATE 5 MG TABLET PO (08:45)
[2020-12-14] MEDS: BRIMONIDINE TARTRATE 0.1% 5 ML OPHTH DROPS 1 DROP EACH EYE ×2 (08:45→17:09)
[2020-12-14] MEDS: FAMOTIDINE 20 MG TABLET PO ×2 (08:45→20:37)
[2020-12-14] MEDS: DORZOLAMIDE/TIMOLOL OPHTH SOL 10 ML BOTTLE 1 DROP EACH EYE ×2 (08:45→20:37)
--- NOTE | 2020-12-14 10:28 | PM.IMPN ---
Progress Note: A&P Assessment and Plan (1) VALENTIN (acute kidney injury): Code(s): N17.9 - Acute kidney failure, unspecified Status: Acute Assessment and Plan: Etiology unclear at this time. Suspect dehydration from recent colonoscopy prep then ongoing poor oral intake contributed. Patient was on hydrochlorothiazide, ibuprofen and metformin prior to admission and these have been held. Cr last month was 1.8; up to 11.7 on arrival trending down to 5.5 today. IV fluids stopped yesterday. Appreciate nephrology input. Renal ultrasound unremarkable. Continue to monitor renal function, electrolytes and urine output. (2) Hyperkalemia: Code(s): E87.5 - Hyperkalemia Status: Resolved Assessment and Plan: Resolved. Suspect related to renal failure. K stable today. Monitor electrolytes daily. Low magnesium replaced, recheck this afternoon is normal. (3) Nausea & vomiting: Qualifiers: Vomiting type: unspecified Vomiting Intractability: non-intractable Qualified Code(s): R11.2 - Nausea with vomiting, unspecified Code(s): R11.2 - Nausea with vomiting, unspecified Status: Acute Assessment and Plan: Improved. Eating better today. Continue supportive care with anti-emetics. He does still continue to have an upset stomach with eating which has been going on since he had his colonoscopy. CT without any acute findings to account for this. I encouraged him to follow up with Dr Domingo if this persists. (4) Type 2 diabetes mellitus without complication, with no history of insulin use: Code(s): E11.9 - Type 2 diabetes mellitus without complications Status: Acute Assessment and Plan: Home metformin and glipizide held. Hgb A1c 6.6% last month. Continue to monitor with accu-cheks and adjust treatment as needed, cover with SSI. Diabetic diet. (5) Colon cancer screening: Code(s): Z12.11 - Encounter for screening for malignant neoplasm of colon Status: Acute Assessment and Plan: Status post recent colonoscopy 12/01/20 demonstrated multiple polyps which were removed - follow up with Dr Domingo. (6) Anemia: Code(s): D64.9 - Anemia, unspecified Status: Acute Assessment and Plan: H&H low but stable. No evidence of acute bleeding. Downward trend may be in part related to dilutional changes. Ferritin, B12, folate within normal limits. Monitor H&H. Subjective Date/time seen: 12/14/20 10:15 Interval history: Mr. Pérez is a very pleasant 70yo M admitted for acute renal failure. He is feeling well today. Denies chest pain, shortness of breath, nausea or vomiting. No complaints at this time. Review of Systems Review of Systems: All systems reviewed & are unremarkable except as noted in HPI and below Exam Narrative: Exam Narrative: General: Male resting comfortably sitting up in bedside chair in no acute distress. HEENT: Normocephalic, EOMI, oral mucosa moist. Cardiovascular: Rate and rhythm are regular. Respiratory: Lungs clear to auscultation bilaterally. Respirations even and non-labored. Tolerating room air. Abdomen: Soft, non-tender, non-distended, bowel sounds present. Extremities: Peripheral pulses intact. No edema or pain to palpation. Neuro: Awake and alert; answering questions appropriately. No focal neurological deficits. Speech is clear. Objective Data Vital Signs Vital Signs: Vital Signs - 24 hr 12/13/20 14:00 12/13/20 20:40 12/13/20 22:00 Temperature 97.9 F 98.1 F Pulse Rate 60 60 66 Respiratory Rate 14 14 20 Blood Pressure 131/63 135/60 Pulse Oximetry 98 98 98 0621 06:00 Temperature 97.7 F Pulse Rate 63 Respiratory Rate 18 Blood Pressure 12
[2020-12-14] MEDS: MAGNESIUM OXIDE 200 MG TABLET PO ×2 (11:07→20:37)
[2020-12-14 12:49] LABS: Glucose Point of Care 114 mg/dl (65-105)
[2020-12-14 14:00] VITALS: BP 128/62; PULSE 54; RESP 18; TEMP 36.1; O2SAT 100
--- NOTE | 2020-12-14 15:57 | PM.PNNEP ---
Progress Note: A&P Assessment and Plan (1) VALENTIN (acute kidney injury): Code(s): N17.9 - Acute kidney failure, unspecified Status: Acute Assessment and Plan: the patient has acute kidney injury. In 2019 he had a normal creatinine. In October and November of this year the patient had a creatinine in the high 1s. his current baseline is unclear. Renal ultrasound looks okay. Urinalysis is bland. He does have a little bit of protein. Urine electrolytes are non pre renal. Urine eosinophils are pending. Most likely this is acute kidney injury secondary to dehydration. Creatinine is slowly improving. Today it is down to 5.5. Will check again tomorrow. Getting close to discharge (2) Hyperkalemia: Code(s): E87.5 - Hyperkalemia Status: Resolved Assessment and Plan: Resolved (3) Diabetes: Code(s): E11.9 - Type 2 diabetes mellitus without complications Status: Acute Assessment and Plan: He is on Accu-Cheks and sliding-scale insulin. (4) Nausea & vomiting: Qualifiers: Vomiting type: unspecified Vomiting Intractability: non-intractable Qualified Code(s): R11.2 - Nausea with vomiting, unspecified Code(s): R11.2 - Nausea with vomiting, unspecified Status: Acute Assessment and Plan: Resolved Subjective Date/time seen: 12/14/20 15:57 Interval history: Patient feels better today. Sitting up in a chair. Eating well. No chest pain or shortness of breath. No edema. Exam Narrative: Exam Narrative: WDWN in NAD skin no rash or subcu nodules head ncat lungs clear bilaterally cor reg no rub or gallop abd BS+ nontender and soft ext no edema or cyanosis.. Objective Data Vital Signs Vital Signs: Vital Signs - 24 hr 12/13/20 20:40 12/13/20 22:00 12/14/20 06:00 Temperature 36.7 C 36.5 C Pulse Rate 60 66 63 Respiratory Rate 14 20 18 Blood Pressure 135/60 120/53 L Pulse Oximetry 98 98 96 12/14/20 14:00 Temperature 36.1 C L Pulse Rate 54 L Respiratory Rate 18 Blood Pressure 128/62 Pulse Oximetry 100 Intake/Output Intake/Output: Intake & Output 12/11/20 12/12/20 12/13/20 12/14/20 23:59 23:59 23:59 23:59 Intake Total 4120 6460 3360 1340 Output Total 2600 2700 1950 750 Balance 1520 3760 1410 590 Meds/Results Medications: Active Medications Generic Name Dose Route Start Last Admin Trade Name Freq PRN Reason Stop Dose Admin Acetaminophen 650 mg 12/09/20 21:19 Acetaminophen 325 Mg Tablet PO Q4H PRN Mild Pain (1-3) or Fever Albuterol 1 puff 12/10/20 02:22 Albuterol Sulfate (*Sp) Aerosol 1 Puff INHALATION Q4H PRN Shortness Of Breath Amlodipine Besylate 5 mg 12/10/20 09:00 12/14/20 08:45 Amlodipine Besylate 5 Mg Tablet PO 5 mg DAILY CHRISTIANNE Administration Aspirin 325 mg 12/10/20 09:00 12/14/20 08:45 Aspirin 325 Mg Tablet PO 325 mg DAILY CHRISTIANNE Administration Brimonidine Tartrate 1 drop 12/10/20 09:00 12/13/20 17:50 Brimonidine Tartrate 0.1% 5 Ml Ophth Drops EACH EYE 1 drop BID CHRISTIANNE Administration Calcium Acetate 667 mg 12/10/20 13:00 12/14/20 08:45 Calcium Acetate 667 Mg Tablet PO 667 mg TID CHRISTIANNE Administration Calcium Carbonate 200 mg 12/13/20 08:27 12/13/20 17:52 Calcium Carbonate (Tums) 500 Mg (200 Mg Elemental) PO 200 mg Q6H PRN Administration Indigestion Dextrose 12.5 gm 12/10/20 09:13 Dextrose 50% 25 Gm/50 Ml Syringe IV PUSH PRN PRN Hypoglycemia Protocol Dorzolamide/Timolol 1 drop 12/10/20 09:00 12/13/20 21:46 Dorzolamide/Timolol Ophth Liseth 10 Ml Bottle EACH EYE 1 drop Q12HR CHRISTIANNE Administration Famotidine 20 mg 12/13/20 09:00 12/14/20 08:45 Famotidine 20 Mg Tablet PO 20 mg Q12HR CHRISTIANNE Administration Fluticasone/Umeclidinium/Vilanterol 1 puff 12/10/20 08:00 12/14/20 08:44 Fluticasone/Umeclidin/Vilanter 100-62.5-25 Mcg Ellipta INHALATION 1 puff
[2020-12-14 18:35] LABS: Glucose Point of Care 119 mg/dl (65-105)
[2020-12-14 20:15] VITALS: PULSE 56; RESP 18; O2SAT 98
[2020-12-14 21:37] VITALS: BP 146/69; PULSE 56; RESP 18; TEMP 36.4; O2SAT 98
[2020-12-14 22:20] LABS: Glucose Point of Care 163 mg/dl (65-105)
[2020-12-15 06:00] VITALS: BP 142/84; PULSE 58; RESP 20; TEMP 36.3; O2SAT 98
[2020-12-15 08:26] LABS: Glucose Point of Care 128 mg/dl (65-105)
[2020-12-15 08:55] LABS: Albumin Level 3.8 g/dL (3.5-5.1); Anion Gap 11 mmol/L (8-16); Blood Urea Nitrogen 39 mg/dL (9-20); Calcium 8.6 mg/dL (8.4-10.2); Carbon Dioxide 20 mmol/L (22-30); Chloride 101 mmol/L (98-107); Estimated CRCL calculation 17 ml/min; Estimated Glomerular Filt Rate 13; Glucose 208 mg/dL (75-110); Phosphorus 3.6 mg/dL (2.5-4.5); Potassium 3.7 mmol/L (3.4-5.0); Sodium 132 mmol/L (137-145)
[2020-12-15] MEDS: FLUTICASONE/UMECLIDIN/VILANTER 100-62.5-25 MCG ELLIPTA 1 PUFF INHALATION (10:20)
[2020-12-15] MEDS: DORZOLAMIDE/TIMOLOL OPHTH SOL 10 ML BOTTLE 1 DROP EACH EYE (10:22)
[2020-12-15] MEDS: BRIMONIDINE TARTRATE 0.1% 5 ML OPHTH DROPS 1 DROP EACH EYE (10:22)
[2020-12-15] MEDS: CALCIUM ACETATE 667 MG TABLET PO (10:22)
[2020-12-15] MEDS: MAGNESIUM OXIDE 200 MG TABLET PO (10:23)
[2020-12-15] MEDS: FAMOTIDINE 20 MG TABLET PO (10:23)
[2020-12-15] MEDS: amLODIPine BESYLATE 5 MG TABLET PO (10:24)
[2020-12-15] MEDS: ASPIRIN 325 MG TABLET PO (10:24)
--- NOTE | 2020-12-15 11:29 | PCNWS ---
Weekly nutritional screen. Patient is tolerating current diet with adequate intake. No weight loss reported. No nutritional needs at this time.
--- NOTE | 2020-12-15 11:34 | PM.DS ---
DS: Admitting Diagnosis Admitting Diagnosis Admitting Diagnosis: VALENTIN DS: Discharge Diagnosis Discharge Diagnosis (1) VALENTIN (acute kidney injury): Code(s): N17.9 - Acute kidney failure, unspecified Status: Acute Assessment and Plan: Date of Admission 12/09/20 Date of Discharge 12/15/20 Mr. Pérez is a pleasant 70yo M with history of CKD who presented to the ED by the request of his PCP for evaluation of anormal outpatient lab work - elevated creatinine and potassium. Cr was found to be 11.7 on arrival and his baseline was noted to be in the 2's. He had recently undergone colonoscopy a few weeks ago and described he has had poor appetite, nausea, and had not been eating or drinking much since then. He was evaluated by nephrology and hydrated with IV fluids. His kidney function slowly made good improvement with Cr down to 4.6 day of discharge. He was feeling well and was hemodynamically stable to discharge home 12/15/20 with instructions for repeat outpatient labs and follow up with PCP. Etiology unclear at this time. Suspect dehydration from recent colonoscopy prep then ongoing poor oral intake contributed. Patient was on hydrochlorothiazide, ibuprofen and metformin prior to admission and these have been held. Cr last month was 1.8; up to 11.7 on arrival trending down to 4.6 today. Renal ultrasound unremarkable. Follow up with PCP, can follow up with nephrology if over time his kidney function does not return back to his baseline. (2) Hyperkalemia: Code(s): E87.5 - Hyperkalemia Status: Resolved Assessment and Plan: Resolved. Suspect related to renal failure. K stable today. (3) Nausea & vomiting: Qualifiers: Vomiting type: unspecified Vomiting Intractability: non-intractable Qualified Code(s): R11.2 - Nausea with vomiting, unspecified Code(s): R11.2 - Nausea with vomiting, unspecified Status: Acute Assessment and Plan: Improved. Eating better today. Continue supportive care with anti-emetics. He does still continue to have an upset stomach with eating which has been going on since he had his colonoscopy. CT without any acute findings to account for this. I encouraged him to follow up with Dr Domingo if this persists. (4) Type 2 diabetes mellitus without complication, with no history of insulin use: Code(s): E11.9 - Type 2 diabetes mellitus without complications Status: Acute Assessment and Plan: Home metformin and glipizide held. Hgb A1c 6.6% last month. Continue to monitor with accu-cheks and adjust treatment as needed, cover with SSI. Diabetic diet. (5) Colon cancer screening: Code(s): Z12.11 - Encounter for screening for malignant neoplasm of colon Status: Acute Assessment and Plan: Status post recent colonoscopy 12/01/20 demonstrated multiple polyps which were removed - follow up with Dr Domingo. (6) Anemia: Code(s): D64.9 - Anemia, unspecified Status: Acute Assessment and Plan: H&H low but stable. No evidence of acute bleeding. Downward trend may be in part related to dilutional changes. Ferritin, B12, folate within normal limits. DS: Summary Hospital Course Hospital Course: See above Time Spent with Patient Time attestation: Total time spent providing and/or coordinating discharge services: 35 minutes Exam Narrative: Exam Narrative: General: Male resting comfortably sitting up in bedside chair in no acute distress. HEENT: Normocephalic, EOMI, oral mucosa moist. Cardiovascular: Rate and rhythm are regular. Respiratory: Lungs clear to auscultation bilaterally. Respirations even and non-labored. Tolera
[2020-12-15 19:27] LABS: Albumin 30 %; Creat 24 Hr 1.77 g/24 h (0.50-2.15); Measured Kappa Chains 1.98 mg/dL (<2.00); Measured Lambda Chains <1.00 mg/dL (<2.00); Pro/Creat Ratio 305 mg/g creat (<=114)
== END 2020-12-15 12:55 | disposition home or self-care (01) | DRG 684 ==
LOC: ANHED 21:33 → ANH3MEDSUR 12-10 07:52
PROVIDERS: Emergency Medicine; Internal Medicine Nephrology; Physician Assistant; Admitting Provider Internal Medicine; Emergency Provider Nurse Practitioner; PCP Internal Medicine; Visit Provider Physician Assistant
DX: N17.9 Acute kidney failure, unspecified (principal); E11.22 Type 2 diabetes mellitus with diabetic chronic kidney disease; I12.9 Hypertensive chronic kidney disease with stage 1 through stage 4 chronic kidney disease, or unspecified chronic kidney disease; N18.32 Chronic kidney disease, stage 3b; E87.5 Hyperkalemia; R11.2 Nausea with vomiting, unspecified; J43.9 Emphysema, unspecified; E78.2 Mixed hyperlipidemia; D64.9 Anemia, unspecified; Z79.84 Long term (current) use of oral hypoglycemic drugs; Z79.82 Long term (current) use of aspirin; Z79.899 Other long term (current) drug therapy; Z86.010 Personal history of colon polyps; Z98.890 Other specified postprocedural states
CPT/HCPCS: 36415; 71250; 74176; 76775; 80048; 80069; 80076; 81001; 82310; 82550; 82570; 82607; 82728; 82746; 82948; 83540; 83550; 83605; 83690; 83735; 83883; 84100; 84156; 84300; 84484; 85014; 85018; 85025; 85027; 85652; 85999; 86038; 86160; 86162; 86334; 86335; 93005; 96365; 99285; A9270; J0610; J1815; J3475; J7030; J7070

== ENCOUNTER 2021-01-05 08:04 | Outpatient (CLI) | payer MEDICARE, SELFPAY ==
--- NOTE | ~2021-01-05 | NM_ITS ---
EXAMINATION: NM ranjan stress w perfusion DATE: 01/05/2021 14:42 INDICATION: Dyspnea on exertion. TECHNIQUE: Rest images were obtained following intravenous administration of 10.2 mCi Tc99m tetrofosm in (Myoview). The patient was infused intravenously with Lexiscan (regadenoson). Then, 32.5 mCi Tc99m tetrofosmin (Myoview) was administered intravenously, and stress images were obtained. Data was kylah nstructed into short axis and horizontal and vertical long axis SPECT images. Gated SPECT images were also obtained. COMPARISON: Chest CT 12/09/2020 FINDINGS: There is no definite reversible or fixed perfusion abnormality to suggest ischemia or infar ction. There is no segmental wall motion abnormality. Left ventricular ejection fraction measures 6 3%. IMPRESSION: 1. No definite ischemia or infarct. 2. Normal left ventricular ejection fraction measuring 63%. Reviewed, dictated and finalized at location A.
--- NOTE | 2021-01-05 08:42 | EST_ITS ---
Patient Info Name: Servando Pérez Age: 70 years : 1950 Gender: Male Ht: 71 in Wt: 235 lbs BSA: 2.34 m2 Exam Date: 01/05/2021 9:02 AM Exam Location: [facility] Stress Patient Status: Outpatient Admit Date: 01/05/2021 Staff Ordering Physician: Ender Arenas APRN Attending Provider: Ender Arenas APRN Exercise Technologist: Samantha Smith RDCS Exercise Physician: Kain Hudson DO Exam Type: CA stress ranjan w NM Study Info Indications R06.02 - Shortness of breath A regadenoson stress test was performed. Summary 1. 1. Negative lexiscan stress test for ischemic ST changes by ECG criteria. 2. 2. Baseline hypertension. 3. 3. Nuclear scan to follow and will be reported separately. Please correlate with it. 4. 4. Patient informed of the above results. Protocol: Lexiscan Stress ECG Details Stage: REST Duration (min): 0 min : 50 sec HR (bpm): 71 SBP (mmHg): 150 DBP (mmHg): 74 Stage: REST Duration (min): 5 min : 5 sec HR (bpm): 71 SBP (mmHg): 150 DBP (mmHg): 74 Stage: STAGE 1 Duration (min): 1 min : 0 sec HR (bpm): 87 SBP (mmHg): 145 DBP (mmHg): 64 Stage: RECOVERY Duration (min): 1 min : 0 sec HR (bpm): 83 SBP (mmHg): 145 DBP (mmHg): 64 Stage: RECOVERY Duration (min): 2 min : 0 sec HR (bpm): 81 SBP (mmHg): 131 DBP (mmHg): 71 Stage: RECOVERY Duration (min): 3 min : 0 sec HR (bpm): 78 SBP (mmHg): 132 DBP (mmHg): 71 Stage: RECOVERY Duration (min): 4 min : 0 sec HR (bpm): 82 SBP (mmHg): 132 DBP (mmHg): 71 Stage: RECOVERY Duration (min): 4 min : 51 sec HR (bpm): 78 SBP (mmHg): 154 DBP (mmHg): 74 Rest HR: 71 bpm Peak HR: 88 bpm Rest Sys BP: 150 mmHg Peak Sys BP: 154 mmHg Max Pred HR: 148 bpm % Max Pred HR: 59 % Target HR: 126 bpm Max RPP: 13,552 bpm*mmHg Termination Reason: Completed protocol Cardiac Symptoms: Shortness of breath Total Time: 1 min : 0 sec Rest Rodriguez BP: 74 mmHg Peak Rodriguez BP: 74 mmHg Total Dose: 0.4 mg Resting ECG Sinus rhythm. Stress ECG No ST changes. Arrhythmias None. Report Signatures
== END 2021-01-05 08:05 | disposition home or self-care (01) ==
LOC: ANHIMG 08:06
PROVIDERS: PCP Internal Medicine; Visit Provider Nurse Practitioner
DX: R06.02 Shortness of breath (principal)
CPT/HCPCS: 78452; 93017; A9502; J2785

== ENCOUNTER 2021-03-01 09:58 | Outpatient (CLI) | payer MEDICARE, SELFPAY ==
--- NOTE | ~2021-03-01 | US_ITS ---
EXAMINATION: US venous doppler LE DATE: 03/01/2021 10:20 INDICATION: TECHNIQUE: Grayscale ultrasound images without and with compression and Doppler ultrasound images of the right lower extremity veins were obtained. COMPARISON: None. FINDINGS: The visualized portions of right common femoral vein, profunda (deep) femoral vein, femoral vein, pop liteal vein, peroneal trunk, posterior tibial veins, peroneal veins, gastrocnemius vein and greater s aphenous vein outflow are patent. There are some synovitis within a bilobed moderate-sized Blackburn's cy st with more superficial component measuring 3.8 x 2.3 x 1.4 cm and with deeper component measuring 3 .9 x 2.4 x 1.3 cm. IMPRESSION: 1. No deep venous thrombosis in the right lower limb. 2. Moderate-sized Blackburn's cyst at the right popliteal fossa. Reviewed, dictated and finalized at location A.
== END 2021-03-01 09:59 | disposition home or self-care (01) ==
PROVIDERS: PCP Internal Medicine; Visit Provider Internal Medicine Nephrology
DX: R60.0 Localized edema (principal); M71.21 Synovial cyst of popliteal space [Baker], right knee
CPT/HCPCS: 93971

== ENCOUNTER 2022-07-03 10:10 | Outpatient (CLI) | payer MEDICARE, SELFPAY ==
--- NOTE | ~2022-07-03 | CT_ITS ---
CT Scan of the Chest without Contrast: Clinical Indication: Dyspnea on exertion, asbestos exposure Technique: Contiguous sections were acquired throughout the chest without intravenous contrast. Dose reduction technique was used on this scan by utilizing automated exposure control and iterative recon struction technique. The dose-length product (DLP) was 359.23 mGy-cm. COMPARISON: 12/09/2020 Findings: There is no evidence of any significant mediastinal, hilar or axillary lymphadenopathy. Coronary alisa ry calcifications are present. No aortic aneurysm. There is no evidence of pleural or pericardial effusion. Calcified pleural plaques are similar to vaibhav or exam. The lungs are otherwise clear. No pulmonary nodules or infiltrates are noted. Images through the upper abdomen reveal no abnormalities. Impression: Calcified pleural plaques, stable from prior exam, which are consistent with history of asbestos expo sure. No other significant findings. Reviewed, dictated and finalized at [facility]. DING SUPERINTENDENT Impression: Calcified pleural plaques, stable from prior exam, which are consistent with hi story of asbestos exposure. No other significant findings.
== END 2022-07-03 10:11 | disposition home or self-care (01) ==
PROVIDERS: PCP Family Medicine
DX: R06.00 Dyspnea, unspecified (principal); Z77.090 Contact with and (suspected) exposure to asbestos
CPT/HCPCS: 71250

== ENCOUNTER 2022-11-08 09:59 | Outpatient (CLI) | payer MEDICARE, SELFPAY ==
--- NOTE | ~2022-11-08 | CT_ITS ---
CT Scan of the Chest without Contrast: Clinical Indication: Lung nodule Technique: Contiguous sections were acquired throughout the chest without intravenous contrast. Dose reduction technique was used on this scan by utilizing automated exposure control and iterative recon struction technique. The dose-length product (DLP) was 369.88 mGy-cm. COMPARISON: 07/03/2022 Findings: There is no evidence of any significant mediastinal, hilar or axillary lymphadenopathy. Coronary alisa ry calcifications are present. There is no evidence of pleural or pericardial effusion. Numerous small calcified pleural plaques are present. The lungs are clear. No pulmonary nodules or infiltrates are noted. Images through the upper abdomen reveal no abnormalities. Impression: Numerous small calcified pleural plaques. No pulmonary nodule evident otherwise. Reviewed, dictated and finalized at [place] [facility]. Impression: Numerous small calcified pleural plaques. No pulmonary nodule evident otherwise.
== END 2022-11-08 10:00 | disposition home or self-care (01) ==
PROVIDERS: PCP Family Medicine
DX: R91.1 Solitary pulmonary nodule (principal)
CPT/HCPCS: 71250